=== PATIENT | male | born 1935 | race Caucasian/White ===

== ENCOUNTER 2016-11-13 12:50 | Inpatient (IN) | payer MEDICARE ==
[~2016-11-13] VITALS: Ht 188 cm; Wt 81.9 kg
[2016-11-13] MEDS ORDERED: SODIUM CHLORIDE FLUSH 10ML SYR IVF ONE (13:30)
[2016-11-13 13:34] LABS: ASPARTATE AMINO TRANSFERASE 14 U/L (15-37); BLOOD UREA NITROGEN 22 mg/dL (7-18)
[2016-11-13] MEDS ORDERED: FURO-93 PO (13:34)
[2016-11-13] MEDS ORDERED: SIMV40TA3 PO (13:34)
[2016-11-13] MEDS ORDERED: ACET1TAB10 PO (13:34)
[2016-11-13] MEDS ORDERED: MULT-464 PO (13:34)
[2016-11-13] MEDS ORDERED: ASPI81TA50 PO (13:34)
[2016-11-13] MEDS ORDERED: PROP60CA PO (13:34)
[2016-11-13 13:47] LABS: IS PT STATUS REG ER OR PRE ER? YES
[2016-11-13] MEDS ORDERED: FUROSEMIDE 20 MG/2 ML IV ONE (15:00)
[2016-11-13] MEDS ORDERED: ACETAMINOPHEN 325 MG TABLET PO PRN (15:30)
[2016-11-13] MEDS ORDERED: hydrALAzine 20 MG/ML, 1ML IVPush PRN (15:30)
[2016-11-13] MEDS ORDERED: HYDROcodone/APAP 5/325 TABLET PO PRN (15:30)
[2016-11-13] MEDS ORDERED: DOCUSATE 100 MG CAPSULE PO PRN (15:30)
[2016-11-13] MEDS ORDERED: ONDANSETRON 2MG/ML, 2ML IVPush PRN (15:30)
[2016-11-13] MEDS ORDERED: morphine SULFATE 10 MG/ML, 1ML IVPush PRN (15:30)
[2016-11-13] MEDS ORDERED: ALBUTEROL/IPRATROPIUM 2.5MG/0.5MG, 3 ML ONE (15:37)
[2016-11-13] MEDS: ALBUTEROL/IPRATROPIUM 2.5MG/0.5MG, 3 ML NPPB SCH ×2 (15:46→19:05)
[2016-11-13 16:00] VITALS: BP 167/76
[2016-11-13] MEDS: NICOTINE 14MG/24 HR PATCH.TD24 TD SCH (18:02)
[2016-11-13] MEDS: ENOXAPARIN 40 MG/0.4 ML SQ SCH (18:02)
[2016-11-13 19:42] LABS: IS PT STATUS REG ER OR PRE ER? NO
[2016-11-13 21:00] VITALS: BP 180/92
[2016-11-13] MEDS ORDERED: SIMVASTATIN 40 MG TABLET PO SCH (21:00)
[2016-11-13 23:00] VITALS: BP 143/77
[2016-11-14] MEDS ORDERED: NITROGLYCERIN 0.4 MG BOTTLE (25 TABS) SL ONE (02:54)
[2016-11-14 02:55] VITALS: BP 132/71
[2016-11-14 03:00] VITALS: BP 159/92
[2016-11-14] MEDS ORDERED: NITROGLYCERIN 0.4 MG BOTTLE (25 TABS) SL PRN (03:00)
[2016-11-14 03:05] VITALS: BP 144/81
[2016-11-14 03:31] LABS: ASPARTATE AMINO TRANSFERASE 15 U/L (15-37); BLOOD UREA NITROGEN 24 mg/dL (7-18)
[2016-11-14 03:36] LABS: IS PT STATUS REG ER OR PRE ER? NO
[2016-11-14 07:04] VITALS: BP 151/73
[2016-11-14] MEDS: ALBUTEROL/IPRATROPIUM 2.5MG/0.5MG, 3 ML NPPB SCH ×3 (07:28→20:00)
[2016-11-14] MEDS: PROPRANOLOL 60 MG CAP.SA.24H PO SCH ×2 (07:53→08:07)
[2016-11-14] MEDS: ASPIRIN 81 MG TABLET EC PO SCH (08:03)
[2016-11-14 09:49] LABS: IS PT STATUS REG ER OR PRE ER? YES
[2016-11-14] MEDS ORDERED: SODIUM CHLORIDE 0.9% 1,000 ML IV SCH ×2 (11:09→17:00)
[2016-11-14] MEDS ORDERED: AMLODIPINE 2.5 MG TABLET PO SCH (11:30)
[2016-11-14] MEDS ORDERED: MIDAZOLAM 1 MG/ML, 5ML ONE (14:35)
[2016-11-14] MEDS ORDERED: HEPARIN 1,000 UNITS/ML, 10ML ONE (14:36)
[2016-11-14] MEDS ORDERED: VERAPAMIL 2.5 MG/ML, 2ML ONE (14:36)
[2016-11-14] MEDS ORDERED: BIVALIRUDIN 250 MG ONE (14:36)
[2016-11-14] MEDS ORDERED: LIDOCAINE 2%, 20ML ONE (14:36)
[2016-11-14] MEDS ORDERED: FENTANYL PF 100 MCG/2ML ONE (14:36)
[2016-11-14] MEDS ORDERED: ALBUTEROL/IPRATROPIUM 2.5MG/0.5MG, 3 ML NPPB PRN (15:00)
[2016-11-14] MEDS ORDERED: TICAGRELOR 90 MG TABLET ONE (15:47)
[2016-11-14] MEDS ORDERED: BIVALIRUDIN 250 MG in DEXTROSE 5% 50 ML IV SCH (15:48)
[2016-11-14] MEDS: LISINOPRIL 10 MG TABLET PO SCH ×2 (17:12→20:20)
[2016-11-14 17:15] VITALS: BP 179/98
[2016-11-14] MEDS: NICOTINE 14MG/24 HR PATCH.TD24 TD SCH (17:17)
[2016-11-14] MEDS: TICAGRELOR 90 MG TABLET PO SCH (20:19)
[2016-11-14] MEDS ORDERED: ATORVASTATIN 40 MG TABLET PO SCH (21:00)
[2016-11-14 22:33] LABS: IS PT STATUS REG ER OR PRE ER? NO
[2016-11-15] MEDS: ENOXAPARIN 40 MG/0.4 ML SQ SCH (00:39)
[2016-11-15 00:46] VITALS: BP 133/75
[2016-11-15 05:24] LABS: BLOOD UREA NITROGEN 21 mg/dL (7-18)
[2016-11-15] MEDS: ALBUTEROL/IPRATROPIUM 2.5MG/0.5MG, 3 ML NPPB SCH ×2 (06:44→10:55)
[2016-11-15] MEDS: ASPIRIN 81 MG TABLET EC PO SCH (07:25)
[2016-11-15] MEDS: LISINOPRIL 10 MG TABLET PO SCH (07:25)
[2016-11-15] MEDS: PROPRANOLOL 60 MG CAP.SA.24H PO SCH (07:25)
[2016-11-15] MEDS: TICAGRELOR 90 MG TABLET PO SCH (07:25)
[2016-11-15 07:30] VITALS: BP 137/71
[2016-11-15] MEDS ORDERED: LISINOPRIL 20 MG TABLET PO SCH (09:00)
[2016-11-15] MEDS ORDERED: TICA90TA PO (09:29)
[2016-11-15] MEDS ORDERED: LISI-170 PO (09:29)
== END 2016-11-15 14:30 | disposition home or self-care (01) | DRG 246 ==
LOC: ED 13:51 → EDIP 13:52 → ED 14:13 → 5SO 15:54 → DCLOUNGE 11-15 13:38
PROVIDERS: ADMIT Family Medicine; ATTEND Family Medicine
PROC: 027034Z Dilation of Coronary Artery, One Artery with Drug-eluting Intraluminal Device, Percutaneous Approach (ICD-10-PCS; principal; 2016-11-14)
PROC: 4A023N7 Measurement of Cardiac Sampling and Pressure, Left Heart, Percutaneous Approach (ICD-10-PCS; 2016-11-14)
PROC: B2111ZZ Fluoroscopy of Multiple Coronary Arteries using Low Osmolar Contrast (ICD-10-PCS; 2016-11-14)
PROC: B2151ZZ Fluoroscopy of Left Heart using Low Osmolar Contrast (ICD-10-PCS; 2016-11-14)
DX: I25.110 Atherosclerotic heart disease of native coronary artery with unstable angina pectoris (principal); I50.21 Acute systolic (congestive) heart failure; I48.92 Unspecified atrial flutter; I47.1 Supraventricular tachycardia; D68.69 Other thrombophilia; I45.3 Trifascicular block; J96.10 Chronic respiratory failure, unspecified whether with hypoxia or hypercapnia; I49.3 Ventricular premature depolarization; J44.9 Chronic obstructive pulmonary disease, unspecified; I73.9 Peripheral vascular disease, unspecified; E78.5 Hyperlipidemia, unspecified; F17.210 Nicotine dependence, cigarettes, uncomplicated; I11.0 Hypertensive heart disease with heart failure; I45.10 Unspecified right bundle-branch block; I48.91 Unspecified atrial fibrillation; Z79.899 Other long term (current) drug therapy; Z82.49 Family history of ischemic heart disease and other diseases of the circulatory system; Z85.46 Personal history of malignant neoplasm of prostate; Z90.79 Acquired absence of other genital organ(s); Z88.0 Allergy status to penicillin
CPT/HCPCS: 36415; 80048; 80053; 80061; 82040; 83735; 83880; 84100; 84436; 84443; 84484; 85025; 85610; 85730; 93005; 93306; 93458; 93880; 93970; 94640; 99156; 99157; 99285; C1894; C9600; J0583; J1644; J1650; J2250; J3010; J3490; J7620; C1725; C1769; C1874; C1887; J0360; J1940; J2270; Q9967

== ENCOUNTER 2018-11-29 07:48 | Observation (INO) | payer MEDICARE ==
[~2018-11-29] VITALS: Ht 188 cm; Wt 77.3 kg
[~2018-11-29 07:48] MED LIST: ACET1TAB10 PO; ASPI81TA50 PO; FURO-93 PO; LISI-170 PO; MULT-464 PO; PROP60CA PO; SIMV40TA3 PO; TICA90TA PO
[2018-11-29] MEDS ORDERED: MULT-717 PO (08:23)
[2018-11-29] MEDS ORDERED: LOSA25TA25 PO (08:23)
[2018-11-29 08:30] VITALS: BP 160/74
[2018-11-29] MEDS ORDERED: VITAMIN D PO (08:30)
[2018-11-29] MEDS ORDERED: MAGN500T PO (08:30)
[2018-11-29] MEDS ORDERED: DOCU-144 PO (08:30)
[2018-11-29] MEDS ORDERED: MIDAZOLAM 1 MG/ML, 5ML ONE (08:53)
[2018-11-29] MEDS ORDERED: VANCOMYCIN 500 MG ONE (08:53)
[2018-11-29] MEDS ORDERED: FENTANYL PF 250 MCG/5ML ONE (08:53)
[2018-11-29] MEDS ORDERED: LIDOCAINE 1%, 20ML ONE (08:53)
[2018-11-29] MEDS ORDERED: VANCOMYCIN PMX 1GM/200ML 200 ML ONE (08:54)
[2018-11-29] MEDS: SODIUM CHLORIDE 0.9% 1,000 ML IV SCH ×2 (09:00→17:00)
[2018-11-29] MEDS ORDERED: VANCOMYCIN PMX 1GM/200ML 200 ML IVPB SCH (09:00)
[2018-11-29] MEDS ORDERED: ACETAMINOPHEN 325 MG TABLET PO PRN (12:00)
[2018-11-29] MEDS ORDERED: [UNRECOGNIZED DRUG - REMARK] MC SCH (12:00)
[2018-11-29] MEDS ORDERED: Hold all anticoagulants for 24 hours MC PRN (12:00)
[2018-11-29] MEDS ORDERED: HYDROcodone/APAP 5/325 TABLET PO PRN (12:00)
[2018-11-29 14:00] VITALS: BP 146/88
[2018-11-29 15:05] VITALS: BP 159/75
[2018-11-29] MEDS: CEFAZOLIN PMX 1GM/50ML 50 ML IV SCH (18:33)
[2018-11-29] MEDS ORDERED: CEFAZOLIN PMX 1GM/50ML 50 ML IVPB SCH (19:00)
[2018-11-29 19:39] VITALS: BP 158/62
[2018-11-29] MEDS: SODIUM CHLORIDE FLUSH 10ML SYR IVF SCH (20:30)
[2018-11-29] MEDS ORDERED: SIMVASTATIN 40 MG TABLET PO SCH (21:00)
[2018-11-30 00:34] VITALS: BP 154/82
[2018-11-30] MEDS: CEFAZOLIN PMX 1GM/50ML 50 ML IV SCH (03:17)
[2018-11-30] MEDS ORDERED: METO25TA35 PO (08:08)
[2018-11-30 08:29] VITALS: BP 173/94
[2018-11-30] MEDS ORDERED: ALUMINUM/MAG/SIMETHICONE 30 ML UDC PO PRN (08:30)
[2018-11-30] MEDS ORDERED: METOPROLOL TARTRATE 25 MG TABLET PO SCH (08:30)
[2018-11-30] MEDS: SODIUM CHLORIDE FLUSH 10ML SYR IVF SCH (08:52)
[2018-11-30] MEDS ORDERED: ASA/APAP/ CAFFEINE TABLET PO SCH (09:00)
[2018-11-30] MEDS ORDERED: LOSARTAN 25MG TABLET PO SCH (09:00)
[2018-11-30] MEDS ORDERED: ASPIRIN 81 MG TABLET EC PO SCH (09:00)
[2018-11-30] MEDS ORDERED: CHOLECALCIFEROL 1,000 UNIT TABLET PO SCH (09:00)
[2018-11-30] MEDS ORDERED: MULTIVITAMIN 1 TABLET PO SCH (09:00)
[2018-11-30] MEDS ORDERED: MAGNESIUM OXIDE 400 MG TABLET PO SCH (09:00)
[2018-11-30] MEDS ORDERED: DOCUSATE 100 MG CAPSULE PO SCH (09:00)
[2018-12-01] MEDS ORDERED: FUROSEMIDE 20 MG TABLET PO SCH (09:00)
== END 2018-11-30 14:00 | disposition home or self-care (01) ==
LOC: CACL 07:48 → ORIP 11:32 → 5SO 11:47 → DCLOUNGE 11-30 13:50
PROVIDERS: ADMIT Internal Medicine Cardiovascular Disease; ATTEND Internal Medicine Cardiovascular Disease
DX: I49.5 Sick sinus syndrome (principal); I10 Essential (primary) hypertension; I25.10 Atherosclerotic heart disease of native coronary artery without angina pectoris; I45.10 Unspecified right bundle-branch block; I71.4 Abdominal aortic aneurysm, without rupture; E78.5 Hyperlipidemia, unspecified; Z79.899 Other long term (current) drug therapy
CPT/HCPCS: 33208; 71045; 96365; 96366; 99156; 99157; C1779; C1785; C1892; G0378; J0690; J2250; J3010; J3370; J3490